=== PATIENT | female | born 1970 | race Caucasian/White ===

== ENCOUNTER 2023-11-14 15:47 | Outpatient (CLI) | payer OTHER ==
[2023-11-14 16:54] LABS: #Basophils 0.05 10x3/uL (0.0-0.2); #Eosinphils 0.46 10x3/uL (0.0-0.5); #Monocytes 0.65 10x3/uL (0.0-1.1); #Neutrophils 5.27 10x3/uL (1.5-8.4); %Basophils 0.5 % (0.0-2.0); %Eosinophils 4.9 % (0.0-6.0); %Lymphocytes 30.6 % (18.0-47.0); %Neutrophils 56.8 % (40.0-75.0); Hemoglobin 12.7 g/dL (12.0-15.5); Mean Corpuscular HGB CONC 33.4 g/dL (32.0-36.0); Mean Corpuscular Hemoglobin 27.9 pg (27.0-33.0); Mean Corpuscular Volume 83.3 fl (81.6-98.3); Mean Platelet Volume 11.4 fl (7.4-10.4); Platelet Count 281 10x3/uL (150-450); RBC Distribution Width 13.7 % (11.5-14.5); Red Blood Cell (RBC) Count 4.56 10x6/uL (3.90-5.03); White Blood Cell (WBC) Count 9.3 10x3/uL (3.5-10.5)
[2023-11-14 17:02] LABS: ALT (SGPT) 20 U/L (8-55); AST (SGOT) 23 U/L (5-34); Albumin 3.6 g/dL (3.5-5.0); Alkaline Phosphatase 83 U/L (40-110); Anion Gap 12 mmol/L (10-20); BUN (Urea Nitrogen) 11 mg/dL (9.8-20.1); Bilirubin, Total 0.3 mg/dL (0.2-1.2); Calc. Creatinine Clearance 0 mL/min (70-130); Calcium 9.2 mg/dL (7.8-10.44); Carbon Dioxide 26 mmol/L (22-29); Chloride 105 mmol/L (98-107); Estimated GFR 72; Globulin 2.9 g/dL (2.4-3.5); Glucose 90 mg/dL (70-105); Protein, Total 6.5 g/dL (6.0-8.3); Sodium 139 mmol/L (136-145)
[2023-11-14 19:59] LABS: Hemoglobin A1c 5.5 % (4.0-6.0)
== END 2023-11-14 15:48 | disposition home or self-care (01) ==
LOC: LABBT 15:47
PROVIDERS: ATTEND Surgery
DX: Z01.812 Encounter for preprocedural laboratory examination (principal); K21.9 Gastro-esophageal reflux disease without esophagitis; E66.01 Morbid (severe) obesity due to excess calories
CPT/HCPCS: 80053; 83036; 85025

== ENCOUNTER 2023-11-14 16:30 | Inpatient (IN) | payer OTHER ==
[2023-11-14 16:31] VITALS: BMI 40.7
[2023-11-22] MEDS ORDERED: Heparin 5,000 UNITS/ML VIAL ONE (11:18)
[2023-11-22] MEDS ORDERED: Ondansetron PF 4 MG/2 ML Vial ONE (11:35)
[2023-11-22] MEDS ORDERED: PROPOFOL 20 ML ONE (11:35)
[2023-11-22] MEDS ORDERED: Dexamethasone 4 mg/ml Vial ONE (11:35)
[2023-11-22] MEDS ORDERED: Rocuronium Bromide 10 MG/ML (10ML VIAL) ONE (11:35)
[2023-11-22] MEDS ORDERED: fentaNYL PF 100 MCG/2 ML SYRINGE ONE ×3 (11:35→14:26)
[2023-11-22] MEDS ORDERED: Lidocaine 1% PF 5 ML VIAL ONE (11:35)
[2023-11-22] MEDS ORDERED: EPINEPHrine 1 MG/ML VIAL ONE (11:56)
[2023-11-22] MEDS ORDERED: Bupivacaine 0.25% HCL 30 ML VIAL ONE (11:57)
[2023-11-22] MEDS ORDERED: Midazolam HCl 2 mg/2 ml Vial ONE (12:01)
[2023-11-22] MEDS ORDERED: LevoFLOXacin D5W 500 mg (100 mL) BAG ONE (12:01)
[2023-11-22] MEDS ORDERED: SUGAMMADEX SODIUM 200 MG/2 ML VIAL ONE (13:22)
[2023-11-22] MEDS ORDERED: Ondansetron PF 4 MG/2 ML Vial IVP PRN (13:52)
[2023-11-22] MEDS ORDERED: Promethazine HCl 25 MG/ML VIAL IM PRN ×2 (13:52→14:43)
[2023-11-22] MEDS ORDERED: diphenhydrAMINE 50 MG/ML VIAL IVP PRN ×2 (13:52→14:43)
[2023-11-22] MEDS ORDERED: Dextrose 50% Abboject 50 ML SYRINGE SLOW IVP PRN (13:52)
[2023-11-22] MEDS ORDERED: Glucagon 1 MG/ML KIT IM PRN (13:52)
[2023-11-22] MEDS ORDERED: Ipratropium/Albuterol 3 ML NEB NEB PRN (13:52)
[2023-11-22] MEDS ORDERED: hydrALAZINE 20 MG/ML VIAL SLOW IVP PRN (13:52)
[2023-11-22] MEDS ORDERED: Dextrose 5% in Water 1,000 ML IV PRN (13:52)
[2023-11-22] MEDS ORDERED: Hydrocodone-Acetamin 15 ML UDCUP PO PRN ×2 (13:52→14:46)
[2023-11-22] MEDS ORDERED: Ketorolac Tromethamine 30 MG (1 mL) VIAL ONE (14:04)
[2023-11-22] MEDS ORDERED: HYDROmorphone 0.5 MG/0.5 ML SYRINGE ONE ×2 (14:04→14:55)
[2023-11-22] MEDS ORDERED: Naloxone HCl 0.4 mg/ml Vial IV PRN (14:43)
[2023-11-22] MEDS ORDERED: diphenhydrAMINE 50 MG/ML VIAL IM PRN (14:43)
[2023-11-22] MEDS ORDERED: FENTANYL 500 MCG/10 ML VIAL 2,000 MCG in Sodium Chloride 0.9% 60 ML IV PRN (14:43)
[2023-11-22] MEDS ORDERED: diphenhydrAMINE 25 MG CAP PO PRN (14:43)
[2023-11-22] MEDS ORDERED: [UNRECOGNIZED DRUG - REMARK] FS SCH (14:45)
[2023-11-22] MEDS: Ketorolac Tromethamine 30 MG (1 mL) VIAL IVP SCH (17:02)
[2023-11-22] MEDS: Ondansetron PF 4 MG/2 ML Vial IVP PRN (17:03)
[2023-11-22] MEDS: D5 1/2 NS w/20 mEq KCL 1,000 ML IV SCH (17:03)
[2023-11-23 04:56] LABS: #Basophils 0.04 10x3/uL (0.0-0.2); %Basophils 0.3 % (0.0-1.0); %Eosinophils 0.3 % (0.0-10.0); %Lymphocytes 7.4 % (21.0-51.0); %Monocytes 4.9 % (0.0-10.0); %Neutrophils 86.7 % (42.0-75.0); Hematocrit 39.8 % (36.0-47.0); Mean Corpuscular HGB CONC 32.7 g/dL (32.0-36.0); Mean Corpuscular Hemoglobin 27.6 pg (27.0-31.0); Mean Corpuscular Volume 84.5 fL (78.0-98.0); Mean Platelet Volume 11.7 fL (7.4-10.4); Platelet Count 264 10x3/uL (130-400); RBC Distribution Width 13.4 % (11.5-14.5); Red Blood Cell (RBC) Count 4.71 mill/uL (4.20-5.40)
[2023-11-23 05:12] LABS: Anion Gap 17 mmol/L (10-20); BUN (Urea Nitrogen) 12 mg/dL (9.8-20.1); Calc. Creatinine Clearance 123 mL/min (70-130); Calcium 9.1 mg/dL (7.8-10.44); Carbon Dioxide 20 mmol/L (22-29); Chloride 105 mmol/L (98-107); Estimated GFR 69; Glucose 132 mg/dL (70-105); Potassium 4.6 mmol/L (3.5-5.1); Sodium 137 mmol/L (136-145)
[2023-11-23] MEDS: Pantoprazole 40 MG VIAL IVP SCH (09:01)
[2023-11-23] MEDS: Enoxaparin 40 MG (0.4 mL) SYRINGE SC SCH (09:01)
[2023-11-23 09:23] VITALS: BP 127/62; TEMP 97.9
== END 2023-11-23 12:20 | disposition home or self-care (01) | DRG 621 ==
LOC: SURG A 11-22 10:36 → SJJU 11-22 16:08
PROVIDERS: ADMIT Surgery; ATTEND Surgery
PROC: 0DB64Z3 Excision of Stomach, Percutaneous Endoscopic Approach, Vertical (ICD-10-PCS; principal; 2023-11-22)
PROC: 0DP64CZ Removal of Extraluminal Device from Stomach, Percutaneous Endoscopic Approach (ICD-10-PCS; 2023-11-22)
PROC: 8E0W4CZ Robotic Assisted Procedure of Trunk Region, Percutaneous Endoscopic Approach (ICD-10-PCS; 2023-11-22)
DX: E66.01 Morbid (severe) obesity due to excess calories (principal); K21.9 Gastro-esophageal reflux disease without esophagitis; Z68.41 Body mass index [BMI] 40.0-44.9, adult; F41.9 Anxiety disorder, unspecified; F32.A Depression, unspecified; I10 Essential (primary) hypertension; G43.909 Migraine, unspecified, not intractable, without status migrainosus; Z90.710 Acquired absence of both cervix and uterus; Z90.49 Acquired absence of other specified parts of digestive tract; Z87.891 Personal history of nicotine dependence; Z98.84 Bariatric surgery status
CPT/HCPCS: 36415; 80048; 85025; 88307; C9113; J0171; J0665; J1100; J1170; J1644; J1650; J1885; J1956; J2250; J2405; J2704; J3480